=== PATIENT | female | born 1970 | race Caucasian/White ===

== ENCOUNTER 2017-04-12 06:57 | Day surgery (SDC) | payer MEDICARE, MEDICAID ==
[~2017-04-12] VITALS: Ht 160 cm; Wt 130.7 kg
[~2017-04-12 06:57] MED LIST: ALDACTONE 25MG25 M1 PO; EFFEXOR 75M75 MG/TAB PO; GLUCOPHAGE1000 MG PO; GLUCOTROL10 MG PO; LANTUS100 U/ML SQ; LASIX 40MG TABL40 MG PO; LEVOXYL0.15 MG PO; LIPITOR 40MG TA40 MG PO; NAPROSYN500 MG PO; NEURONTIN100 MG/CAP PO; NOLVADEX 1010 MG/TAB PO; XYZAL5 MG PO; ZANTAC 150MG T150 MG PO; ZESTRIL 5MG5 MG PO
[2017-04-12 07:44] VITALS: BP 135/80; PULSE 90; TEMP 97.3
[2017-04-12] MEDS ORDERED: NORCO 325 MG-51 TAB PO (09:45)
[2017-04-12 09:50] VITALS: BP 121/80; PULSE 86; TEMP 97.1
[2017-04-12 10:05] VITALS: BP 123/74; PULSE 85
[2017-04-12 10:20] VITALS: BP 149/88; PULSE 87
[2017-04-12 10:35] VITALS: BP 131/66; PULSE 88
== END 2017-04-12 10:55 | disposition home or self-care (01) ==
LOC: SDCO 06:57
DX: C50.411 Malignant neoplasm of upper-outer quadrant of right female breast (principal); C77.3 Secondary and unspecified malignant neoplasm of axilla and upper limb lymph nodes; C78.7 Secondary malignant neoplasm of liver and intrahepatic bile duct; I10 Essential (primary) hypertension; E11.9 Type 2 diabetes mellitus without complications; E78.00 Pure hypercholesterolemia, unspecified; G47.33 Obstructive sleep apnea (adult) (pediatric); F32.9 Major depressive disorder, single episode, unspecified; M19.90 Unspecified osteoarthritis, unspecified site; Z90.710 Acquired absence of both cervix and uterus; Z79.84 Long term (current) use of oral hypoglycemic drugs; Z87.891 Personal history of nicotine dependence
CPT/HCPCS: OP; C1788; J1644; J1885; J2250; J2405; J2704; J3010; J7030

== ENCOUNTER 2017-06-13 14:21 | Inpatient (IN) | payer MEDICARE, MEDICAID ==
[~2017-06-13] VITALS: Ht 160 cm; Wt 124.1 kg
[~2017-06-13 14:21] MED LIST changes: -EFFEXOR 75M75 MG/TAB PO; +EFFEXOR XR75 MG/CAP PO; +GLUCOTROL XL10 MG PO; -GLUCOTROL10 MG PO; +NORCO 325 MG-51 TAB PO
[2017-06-13 15:37] VITALS: BP 92/48; PULSE 106; TEMP 97.6
[2017-06-13 17:48] LABS: BILIRUBIN,TOTAL 1.2 mg/dL (0.0-1.0); CALCIUM 6.6 mg/dL (8.4-10.2); POTASSIUM 3.2 mmol/L (3.4-5.0); TOTAL PROTEIN 5.8 gm/dL (6.4-8.2)
[2017-06-13 17:50] LABS: CREATININE, serum 7.76 mg/dL (0.52-1.25); MAGNESIUM 0.8 mg/dL (1.6-2.3)
[2017-06-13 17:55] LABS: BASO # 0.1 (0.0-0.2); BASO % 0.4 % (0.0-2.0); EOS % 0.1 % (0-4.0); GRAN # 13.9 (1.4-6.5); GRAN % 89.4 % (42.2-75.2); LYMPH # 0.8 (1.2-3.4); LYMPH % 4.9 % (20.0-51.0); MEAN CELL VOLUME 88 fl (80.0-100.0); MEAN CORPUSCULAR HGB CONC 34 g/dl (33.0-37.0); MEAN PLATELET VOLUME 9.5 fl (7.4-10.4); MONO # 0.7 (0.1-0.6); MONO % 4.6 % (1.7-9.3); PLATELET COUNT 317 K/mm3 (130-400); RED BLOOD COUNT 3.65 M/mm3 (4.10-5.30); REDCELL DISTRIBUTION WIDTH-CV 16.4 % (11.5-14.5)
[2017-06-13 17:57] LABS: HEMATOCRIT 32.1 % (37.0-47.0); HEMOGLOBIN 10.8 g/dl (12.5-16.0); MEAN CORPUSCULAR HEMOGLOBIN 30 pg (27.0-31.0)
[2017-06-13 18:58] LABS: MUCOUS Present /lpf; PH 5 (5-8); URINE APPEARANCE Cloudy; URINE BACTERIA None Seen /hpf; URINE BILIRUBIN Negative (NEGATIVE); URINE BLOOD Negative (NEGATIVE); URINE COLOR Yellow; URINE GLUCOSE Negative (NEGATIVE); URINE KETONE Negative (NEGATIVE); URINE LEUKOCYTE ESTERASE Negative (NEGATIVE); URINE NITRATE Negative (NEGATIVE); URINE PROTEIN(semi-quant) 1+ (NEGATIVE); URINE RBC 0-2 /hpf; URINE UROBILINOGEN Negative (NEGATIVE)
[2017-06-13 19:18] LABS: COLLECTION METHOD CATHETER
[2017-06-13 19:57] VITALS: BP 102/35; PULSE 102; TEMP 96.7
[2017-06-13 20:20] LABS: MAGNESIUM 1.5 mg/dL (1.6-2.3); POTASSIUM 3.6 mmol/L (3.4-5.0)
[2017-06-13 23:41] VITALS: BP 94/57; PULSE 98; TEMP 97.8
[2017-06-14] VITALS (7 sets, daily range): BP systolic 81–127; BP diastolic 44–91; PULSE 82–97; TEMP 97.1–98.5
[2017-06-14 07:09] LABS: BASO # 0.1 (0.0-0.2); BASO % 0.6 % (0.0-2.0); EOS # 0.1 (0.0-0.7); EOS % 0.4 % (0-4.0); GRAN # 10.2 (1.4-6.5); GRAN % 86.8 % (42.2-75.2); LYMPH # 0.7 (1.2-3.4); LYMPH % 6.1 % (20.0-51.0); MEAN CELL VOLUME 91 fl (80.0-100.0); MEAN CORPUSCULAR HGB CONC 33 g/dl (33.0-37.0); MONO # 0.6 (0.1-0.6); MONO % 5.3 % (1.7-9.3); PLATELET COUNT 329 K/mm3 (130-400); RED BLOOD COUNT 3.32 M/mm3 (4.10-5.30); REDCELL DISTRIBUTION WIDTH-CV 16.8 % (11.5-14.5)
[2017-06-14 07:16] LABS: CALCIUM 6.2 mg/dL (8.4-10.2); POTASSIUM 3.6 mmol/L (3.4-5.0)
[2017-06-14 07:19] LABS: HEMATOCRIT 30.2 % (37.0-47.0); HEMOGLOBIN 9.9 g/dl (12.5-16.0); MEAN CORPUSCULAR HEMOGLOBIN 30 pg (27.0-31.0)
[2017-06-14 07:29] LABS: CREATININE, serum 7.66 mg/dL (0.52-1.25)
[2017-06-14 18:02] LABS: SODIUM 130 mmol/L (137-145)
[2017-06-15 02:44] VITALS: BP 121/57; PULSE 83; TEMP 97.6
[2017-06-15 06:47] LABS: BASO # 0.1 (0.0-0.2); BASO % 0.7 % (0.0-2.0); EOS % 0.2 % (0-4.0); GRAN % 85.2 % (42.2-75.2); LYMPH # 0.7 (1.2-3.4); LYMPH % 7.7 % (20.0-51.0); MEAN CELL VOLUME 90 fl (80.0-100.0); MEAN CORPUSCULAR HGB CONC 33 g/dl (33.0-37.0); MEAN PLATELET VOLUME 9.8 fl (7.4-10.4); MONO # 0.5 (0.1-0.6); MONO % 5.5 % (1.7-9.3); PLATELET COUNT 330 K/mm3 (130-400); RED BLOOD COUNT 3.28 M/mm3 (4.10-5.30); REDCELL DISTRIBUTION WIDTH-CV 16.8 % (11.5-14.5)
[2017-06-15 06:51] LABS: HEMATOCRIT 29.4 % (37.0-47.0); HEMOGLOBIN 9.8 g/dl (12.5-16.0); MEAN CORPUSCULAR HEMOGLOBIN 30 pg (27.0-31.0)
[2017-06-15 07:07] LABS: CALCIUM 6.1 mg/dL (8.4-10.2); MAGNESIUM 3.4 mg/dL (1.6-2.3); PHOSPHOROUS 5.8 mg/dL (2.5-4.5); POTASSIUM 4.1 mmol/L (3.4-5.0)
[2017-06-15 07:30] LABS: CREATININE, serum 7.2 mg/dL (0.52-1.25)
[2017-06-15 07:51] VITALS: BP 112/61; PULSE 88; TEMP 97.6
[2017-06-15 11:13] VITALS: BP 110/49; PULSE 106; TEMP 97.3
[2017-06-15 15:24] LABS: URINE PROTEIN:CREAT RATIO 0.66 (0.00-0.14)
[2017-06-15 15:45] LABS: FRACTIONAL EXCRETION OF NA+ 1.3 %
[2017-06-15 15:49] LABS: CREATININE, serum 6.9 mg/dL (0.52-1.25)
[2017-06-15 16:00] VITALS: BP 99/45; PULSE 99; TEMP 98.6
[2017-06-15 22:06] VITALS: BP 120/60; PULSE 95; TEMP 97.6
[2017-06-16 02:03] VITALS: BP 114/52; PULSE 94; TEMP 97.5
[2017-06-16 04:24] VITALS: BP 127/68; PULSE 99; TEMP 97.2
[2017-06-16 06:08] LABS: BASO # 0.1 (0.0-0.2); BASO % 0.6 % (0.0-2.0); EOS % 0.5 % (0-4.0); GRAN # 6.2 (1.4-6.5); GRAN % 79.3 % (42.2-75.2); LYMPH # 0.8 (1.2-3.4); LYMPH % 10.2 % (20.0-51.0); MEAN CELL VOLUME 90 fl (80.0-100.0); MEAN CORPUSCULAR HGB CONC 33 g/dl (33.0-37.0); MEAN PLATELET VOLUME 9.4 fl (7.4-10.4); MONO # 0.7 (0.1-0.6); MONO % 8.6 % (1.7-9.3); PLATELET COUNT 330 K/mm3 (130-400); RED BLOOD COUNT 3.12 M/mm3 (4.10-5.30); REDCELL DISTRIBUTION WIDTH-CV 17.2 % (11.5-14.5)
[2017-06-16 06:21] LABS: HEMOGLOBIN 9.3 g/dl (12.5-16.0); MEAN CORPUSCULAR HEMOGLOBIN 30 pg (27.0-31.0)
[2017-06-16 06:38] LABS: MAGNESIUM 3.2 mg/dL (1.6-2.3); PHOSPHOROUS 4.9 mg/dL (2.5-4.5); POTASSIUM 3.9 mmol/L (3.4-5.0)
[2017-06-16 06:58] LABS: CREATININE, serum 6.49 mg/dL (0.52-1.25)
[2017-06-16 08:42] VITALS: BP 129/70; PULSE 96; TEMP 97.8
[2017-06-16 11:09] VITALS: BP 97/57; PULSE 113; TEMP 97.9
[2017-06-16 15:29] VITALS: BP 129/65; PULSE 100; TEMP 97.6
[2017-06-16 19:49] VITALS: BP 128/67; PULSE 95; TEMP 97.4
[2017-06-17 00:45] VITALS: BP 108/57; PULSE 105; TEMP 97.6
[2017-06-17 05:46] VITALS: BP 101/48; PULSE 92; TEMP 98.3
[2017-06-17 07:01] LABS: MAGNESIUM 2.9 mg/dL (1.6-2.3); PHOSPHOROUS 4.2 mg/dL (2.5-4.5)
[2017-06-17 07:03] LABS: CALCIUM 8.3 mg/dL (8.4-10.2)
[2017-06-17 07:35] LABS: CREATININE, serum 4.32 mg/dL (0.52-1.25)
[2017-06-17 08:18] VITALS: BP 109/43; PULSE 97; TEMP 97.6
[2017-06-17] MEDS ORDERED: EFFEXOR XR37.5 MG/CA PO (08:57)
[2017-06-17] MEDS ORDERED: SODIUM BICARBO650 MG PO (08:59)
== END 2017-06-17 11:50 | disposition home or self-care (01) | DRG 683 ==
LOC: MEDICAL 14:21
PROVIDERS: Family Medicine; Internal Medicine; Internal Medicine Nephrology; Physician Assistant
DX: N17.0 Acute kidney failure with tubular necrosis (principal); E87.1 Hypo-osmolality and hyponatremia; C78.7 Secondary malignant neoplasm of liver and intrahepatic bile duct; E87.2 Acidosis; C77.3 Secondary and unspecified malignant neoplasm of axilla and upper limb lymph nodes; Z66 Do not resuscitate; E87.6 Hypokalemia; C50.911 Malignant neoplasm of unspecified site of right female breast; K21.9 Gastro-esophageal reflux disease without esophagitis; E03.9 Hypothyroidism, unspecified; E78.5 Hyperlipidemia, unspecified; E11.9 Type 2 diabetes mellitus without complications; F32.9 Major depressive disorder, single episode, unspecified; D64.9 Anemia, unspecified; E83.39 Other disorders of phosphorus metabolism; Z87.891 Personal history of nicotine dependence; Z17.1 Estrogen receptor negative status [ER-]; Z23 Encounter for immunization; Z79.84 Long term (current) use of oral hypoglycemic drugs; Z79.4 Long term (current) use of insulin
CPT/HCPCS: 99223-AI; 99231-AI; 99232-AI; 99239; J1644; J1815; J3475; J7030; Q9967